=== PATIENT | male | born 1995 | race Two or more races ===

== ENCOUNTER 2020-05-19 22:48 | Emergency (ER) | payer OTHER ==
[~2020-05-19] VITALS: Ht 154.9 cm; Wt 47.6 kg
[2020-05-20] MEDS ORDERED: AMOX-CLAV 875-1 EACH PO (00:28)
[2020-05-20] MEDS ORDERED: IBU800 MG PO (00:28)
== END 2020-05-20 00:33 ==
LOC: ER 22:48
DX: K08.89 Other specified disorders of teeth and supporting structures (principal)